=== PATIENT | male | born 1970 | race Two or more races ===

== ENCOUNTER 2019-07-06 07:09 | Emergency (ER) | payer SELFPAY ==
--- NOTE | 2019-07-06 07:21 | NUR ---
PT AMBULATORY TO ED W/ C/O "BUGS CRAWLING IN ME," ABD PAIN AND N/V X 1 WEEK. PT INITIALLY ARGUING W/ RN, DECLINING TO ANSWER QUESTIONS. EXPLAINED POC TO PT INCLUDING NEED TO ASSESS PT AND ADDRESS QUESTIONS. PT APOLOGIZE AND COMPLETED TRIAGE ASSESSMENT W/ RN. PT PLACED ON INTAKE COORDINATOR. ISOLATION PRECAUTIONS IN PLACE.
[2019-07-06 07:28] LABS: BASOPHILS # (AUTO) 0.02 x10^3/uL (0-0.1); BASOPHILS % (AUTO) 0 % (0-1); EOSINOPHILS # (AUTO) 0.34 x10^3/uL (0-0.4); EOSINOPHILS % (AUTO) 4 % (1-7); LYMPHOCYTES # (AUTO) 1.43 x10^3/uL (1-3.4); LYMPHOCYTES % (AUTO) 18 % (22-44); MD NO; MEAN CORPUSCULAR HEMOGLOBIN 30.7 pg (27.5-34.5); MEAN CORPUSCULAR HGB CONC 33.5 g/dL (33.2-36.2); MEAN CORPUSCULAR VOLUME 91.5 fL (81-97); MEAN PLATELET VOLUME 8.4 fL (7.4-10.4); MONOCYTES # (AUTO) 0.67 x10^3/uL (0.2-0.8); MONOCYTES % (AUTO) 8 % (2-9); NEUTROPHILS # (AUTO) 5.66 x10^3/uL (1.8-6.8); NEUTROPHILS % (AUTO) 70 % (42-75); PLATELET COUNT 221 x10^3/uL (130-400); RED BLOOD COUNT 4.54 x10^6/uL (4.38-5.82); RED CELL DISTRIBUTION WIDTH 14.8 % (9.4-14.8)
[2019-07-06] MEDS ORDERED: MAALOX/HYOSCYAMINE/LIDOCAINE 45 ML BTL ONE (07:29)
[2019-07-06] MEDS ORDERED: FAMOTIDINE 20 MG TABLET ONE (07:29)
[2019-07-06] MEDS ORDERED: ONDANSETRON ODT 8 MG ONE (07:30)
[2019-07-06] MEDS ORDERED: ONDANSETRON ODT 8 MG PO ONE (07:30)
[2019-07-06] MEDS ORDERED: MAALOX/HYOSCYAMINE/LIDOCAINE 45 ML BTL PO ONE (07:30)
[2019-07-06] MEDS ORDERED: FAMOTIDINE 20 MG TABLET PO ONE (07:30)
--- NOTE | 2019-07-06 07:38 | NUR ---
PT MEDICATED ORDERED. PROVIDED W/ WARM BLANKET. PT MORE CALM AND COOPERATIVE AT THIS TIME. PT PROVIDED W/ URINAL, AWARE NEED URINE SAMPLE AND STOOL SAMPLE IF ABLE. PT UPDATED ON POC INCLUDING PENDING TESTS AND CHART REVIEW BY ERP.
[2019-07-06 07:40] LABS: ALBUMIN 2.8 g/dL (3.4-5.0); ANION GAP 5 mmol/L (5-15); CHLORIDE 110 mmol/L (98-107)
[2019-07-06 07:43] LABS: ALANINE AMINOTRANSFERASE 17 U/L (12-78); ALKALINE PHOSPHATASE 78 U/L (45-117); BILIRUBIN,TOTAL 0.8 mg/dL (0.2-1.0); CREATININE 1.25 mg/dL (0.7-1.3); TOTAL PROTEIN 7.5 g/dL (6.4-8.2)
[2019-07-06 08:27] VITALS: BP 120/61
--- NOTE | 2019-07-06 08:32 | NUR ---
PT PLACED ON 3L OXYGEN VIA NC FOR SPO2 <90%. PT NOTED TO HAVE 8 SECOND RESPIRATORY PAUSES WHILE SLEEPING. PT EASY TO AROUSE, ABLE TO TAKE A DEEP BREATH AND INCREASE SPO2 TO 93%. PT REPOSITIONED ON GURNEY, HOB ELEVATED. PT CURRENTLY 95% ON 3L OXYGEN WHILE SLEEPING.
--- NOTE | 2019-07-06 08:49 | NUR ---
PT AWAKENED, AWARE WILL BE DISCHARGED. ASKED PT TO PROVIDE URINE SAMPLE. PT STATED "NO." "YOUR DISCRIMINATING ME." WHEN ASKED WHAT PT MEANT, PT STATED "NOTHING." PT ASKED AGAIN IF ABLE TO VOID, PT DECLINED TO ANSWER RN.
--- NOTE | 2019-07-06 09:00 | NUR ---
ERP AT BEDSIDE, UPON FURTHER EXAM, PT FOUND TO HAVE LICE AND BUGS NOTED ON GURNEY.
--- NOTE | 2019-07-06 09:40 | NUR ---
ATTEMPTED TO REVIEW DISCHARGE INSTRUCTIONS AND PRESCRIPTIONS W/ PT. PT BECAME VERBALLY AGRESSIVE, YELLING PROFANITIES AT RN. PT STARTED THROWING CLOTHES AND MONITORING CABLES AROUND ROOM. SECURITY CALLED TO BEDSIDE. PT CONTINUED TO YELL AND THROW THINGS AT DOOR. ATTEMPTED AGAIN TO REVIEW DISCHARGE INSTRUCTIONS AND PRESCRIPTIONS W/ PT W/ SECURITY AT BEDSIDE. PT CONTINUED TO YELL AT RN AND SECURITY. SECURITY ESCORTED PT FROM ED. PT DID NOT TAKE PRESCRIPTIONS OR DISCHARGE PAPERWORK.
== END 2019-07-06 09:43 | disposition home or self-care (01) ==
LOC: ED 09:37
DX: R11.2 Nausea with vomiting, unspecified (principal); R19.7 Diarrhea, unspecified; J18.9 Pneumonia, unspecified organism
CPT/HCPCS: 36415; 74021; 80053; 83690; 85025; 99284; Q0162

== ENCOUNTER 2019-07-14 01:47 | Emergency (ER) | payer SELFPAY ==
[2019-07-14] MEDS ORDERED: PIPERONYL BUTOXIDE/PYRETHRINS SHAMPOO ONE (01:56)
[2019-07-14] MEDS ORDERED: PERMETHRIN CRM 5%, 60GM TP SCH (02:00)
[2019-07-14 02:03] VITALS: BP 99/57
[2019-07-14 03:00] LABS: ALANINE AMINOTRANSFERASE 15 U/L (12-78); ALBUMIN 2.8 g/dL (3.4-5.0); ANION GAP 6 mmol/L (5-15); CALCIUM 8.3 mg/dL (8.5-10.1); CHLORIDE 108 mmol/L (98-107)
[2019-07-14 03:03] LABS: ALKALINE PHOSPHATASE 80 U/L (45-117); TOTAL PROTEIN 7.5 g/dL (6.4-8.2)
[2019-07-14 03:04] LABS: BILIRUBIN,TOTAL < 0.1 mg/dL (0.2-1.0)
--- NOTE | 2019-07-14 04:00 | NUR ---
Pt reports hx of sleep apnea. Oxygen saturation is 96 on RA, but lowers when sleeping.
[2019-07-14 04:02] LABS: MEAN CORPUSCULAR HEMOGLOBIN 30.8 pg (27.5-34.5); MEAN CORPUSCULAR HGB CONC 33.6 g/dL (33.2-36.2); MEAN CORPUSCULAR VOLUME 91.8 fL (81-97); MEAN PLATELET VOLUME 8.1 fL (7.4-10.4); PLATELET COUNT 280 x10^3/uL (130-400); RED CELL DISTRIBUTION WIDTH 14.6 % (9.4-14.8)
[2019-07-14 04:06] LABS: MD YES
[2019-07-14 04:12] LABS: EOS#(MANUAL) 0.82 x10^3/uL (0.0-0.4); EOS% (MANUAL) 8 % (1-7); LYMPH#(MANUAL) 1.85 x10^3/uL (1-3.4); LYMPHS% (MANUAL) 18 % (22-44); MONOS#(MANUAL) 0.72 x10^3/uL (0.3-2.7); MONOS% (MANUAL) 7 % (2-9); SEGS% (MANUAL) 67 % (42-75)
[2019-07-14 04:13] LABS: <PLT MORPHOLOGY> NORMAL PLT MORPH; <RBC MORPHOLOGY> NORMAL
[2019-07-14 04:14] LABS: <PLATELET ESTIMATE> ADEQUATE
[2019-07-14] MEDS ORDERED: ONDANSETRON ODT 8 MG PO STA (04:18)
[2019-07-14] MEDS ORDERED: ONDANSETRON ODT 4 MG ONE (04:25)
[2019-07-14] MEDS ORDERED: ACETAMINOPHEN 500 MG TABLET ONE ×2 (04:25→04:27)
[2019-07-14] MEDS ORDERED: PLEASE ENTER HEIGHT AND WEIGHT MC SCH (04:30)
[2019-07-14] MEDS ORDERED: ACETAMINOPHEN 500 MG TABLET PO ONE (04:30)
[2019-07-14] MEDS ORDERED: AZITHROMYCIN 500 MG TABLET ONE (05:08)
[2019-07-14] MEDS ORDERED: AZITHROMYCIN 500 MG TABLET PO ONE (05:30)
== END 2019-07-14 05:14 | disposition home or self-care (01) ==
LOC: ED 04:35
DX: R10.11 Right upper quadrant pain (principal); R10.31 Right lower quadrant pain; J18.9 Pneumonia, unspecified organism; B85.1 Pediculosis due to Pediculus humanus corporis
CPT/HCPCS: 36415; 71045; 80053; 80307; 83690; 85025; 99284; Q0162

== ENCOUNTER 2019-07-25 21:43 | Emergency (ER) | payer SELFPAY ==
[~2019-07-25] VITALS: Ht 182.9 cm; Wt 100.0 kg
[2019-07-25 21:45] VITALS: BP 116/78
== END 2019-07-25 22:32 | disposition home or self-care (01) ==
LOC: ED 21:50
DX: B85.0 Pediculosis due to Pediculus humanus capitis (principal); E66.9 Obesity, unspecified; Z87.891 Personal history of nicotine dependence
CPT/HCPCS: 99283

== ENCOUNTER 2019-09-15 23:37 | Inpatient (IN) | payer OTHER ==
[~2019-09-15] VITALS: Ht 182.9 cm; Wt 114.3 kg
[2019-09-15] MEDS ORDERED: ACETAMINOPHEN 325 MG TABLET ONE (23:52)
[2019-09-16] MEDS ORDERED: ACETAMINOPHEN 325 MG TABLET PO ONE
[2019-09-16] MEDS ORDERED: SODIUM CHLORIDE 0.9% 1,000ML IVBOLUS ONE
--- NOTE | 2019-09-16 00:08 | NUR ---
PLACED ON VITALS SIGNS AND PROJECT ESTIMATOR, PLACED ON 2L NC. IV STARTED AND 1 SET OF BLOOD CULTURES TAKEN. LAB AT BEDSIDE.
[2019-09-16 00:36] LABS: ALBUMIN 3.1 g/dL (3.4-5.0); ANION GAP 7 mmol/L (5-15); CALCIUM 8.5 mg/dL (8.5-10.1); CHLORIDE 104 mmol/L (98-107)
--- NOTE | 2019-09-16 00:36 | NUR ---
URINE SAMPLE COLLECTED.
[2019-09-16 00:39] LABS: ALANINE AMINOTRANSFERASE 42 U/L (12-78); ALKALINE PHOSPHATASE 79 U/L (45-117); BILIRUBIN,TOTAL 1.3 mg/dL (0.2-1.0); CREATININE 1.37 mg/dL (0.7-1.3)
[2019-09-16 00:47] LABS: MICROSCOPIC INDICATED
[2019-09-16 00:59] LABS: MEAN CORPUSCULAR HEMOGLOBIN 30.7 pg (27.5-34.5); MEAN CORPUSCULAR HGB CONC 33.1 g/dL (33.2-36.2); MEAN CORPUSCULAR VOLUME 92.7 fL (81-97); RED BLOOD COUNT 4.32 x10^6/uL (4.38-5.82); RED CELL DISTRIBUTION WIDTH 13.9 % (9.4-14.8)
[2019-09-16 01:00] LABS: MEAN PLATELET VOLUME 7.9 fL (7.4-10.4); PLATELET COUNT 239 x10^3/uL (130-400)
[2019-09-16] MEDS ORDERED: CEFTRIAXONE PMX 1GM/50ML 50 ML IVPB ONE (01:00)
[2019-09-16] MEDS ORDERED: AZITHROMYCIN 500 MG in SODIUM CHLORIDE 0.9% 250 ML IVPB ONE (01:00)
[2019-09-16] MEDS ORDERED: SODIUM CHLORIDE FLUSH 10ML SYR IVF ONE ×2 (01:00)
[2019-09-16] MEDS ORDERED: CEFTRIAXONE PMX 1GM/50ML 50 ML ONE (01:05)
[2019-09-16 01:41] LABS: MD YES
[2019-09-16 01:46] LABS: <RBC MORPHOLOGY> NORMAL; EOS#(MANUAL) 0.13 x10^3/uL (0.0-0.4); EOS% (MANUAL) 1 % (1-7); LYMPH#(MANUAL) 1.16 x10^3/uL (1-3.4); LYMPHS% (MANUAL) 9 % (22-44); MONOS#(MANUAL) 1.03 x10^3/uL (0.3-2.7); MONOS% (MANUAL) 8 % (2-9); SEG#(MANUAL) 10.58 x10^3/uL (1.8-6.8); SEGS% (MANUAL) 82 % (42-75)
[2019-09-16 01:47] LABS: <PLATELET ESTIMATE> ADEQUATE; <PLT MORPHOLOGY> NORMAL PLT MORPH
--- NOTE | 2019-09-16 02:09 | NUR ---
SLEEPING IN NO ACUTE DISTRESS, EVEN AND UNLABORED RESPIRATIONS. VSS. SAFETY FALL PRECAUTIONS IN PLACE.
--- NOTE | 2019-09-16 02:22 | NUR ---
HOSPITALIST AT BEDSIDE.
--- NOTE | 2019-09-16 02:29 | NUR ---
REPORT GIVEN TO LILLIANA JOYA.
[2019-09-16 03:01] VITALS: BP 93/61
[2019-09-16] MEDS ORDERED: PHARMACY MAY ADJ FOR RENAL FX MC PRN (04:00)
[2019-09-16] MEDS ORDERED: LACTATED RINGERS 1,000 ML IV SCH (04:00)
[2019-09-16] MEDS ORDERED: ACETAMINOPHEN 325 MG TABLET PO PRN (04:00)
[2019-09-16] MEDS ORDERED: ONDANSETRON 2MG/ML, 2ML IVPush PRN (04:00)
[2019-09-16] MEDS ORDERED: HEPARIN 5,000 UNITS/ML, 1ML SQ SCH (04:00)
[2019-09-16] MEDS: DOXYCYCLINE 100 MG in DEXTROSE 5% 250 ML IV SCH ×2 (04:32→16:34)
[2019-09-16 04:43] LABS: AMPHETAMINE SCREEN, URINE Negative (Negative); BARBITURATE SCREEN, URINE Negative (Negative); BENZODIAZEPINE SCREEN, URINE Negative (Negative); CANNABINOID SCREEN, URINE Negative (Negative); COCAINE SCREEN, URINE Negative (Negative); METHADONE SCREEN, URINE Negative (Negative); OPIATE SCREEN, URINE Negative (Negative)
[2019-09-16 05:54] LABS: INTERNATIONAL NORMALIZED RATIO 1.08 (0.93-1.1); PROTHROMBIN TIME 11.5 Seconds (9.6-11.5)
[2019-09-16] MEDS: ASCORBATE SODIUM 3,000 MG in SODIUM CHLORIDE 0.9% 250 ML IVPB SCH ×3 (06:01→21:43)
[2019-09-16 08:10] VITALS: BP 97/58
[2019-09-16] MEDS: ENOXAPARIN 40 MG/0.4 ML SQ SCH (10:16)
[2019-09-16] MEDS: ZINC SULFATE 220 MG CAPSULE PO SCH (10:16)
[2019-09-16] MEDS: CHOLECALCIFEROL 1,000 UNIT TABLET PO SCH (10:16)
[2019-09-16 15:18] VITALS: BP 96/62
[2019-09-16 18:36] VITALS: BP 104/65
[2019-09-16] MEDS: MELATONIN 5 MG TABLET PO SCH (19:59)
[2019-09-17 00:13] VITALS: BP 104/62
[2019-09-17] MEDS: CEFTRIAXONE PMX 1GM/50ML 50 ML IV SCH (00:55)
[2019-09-17] MEDS: ASCORBATE SODIUM 3,000 MG in SODIUM CHLORIDE 0.9% 250 ML IVPB SCH (03:32)
[2019-09-17] MEDS ORDERED: PIPERONYL BUTOXIDE/PYRETHRINS SHAMPOO TP SCH (06:00)
[2019-09-17] MEDS ORDERED: PERMETHRIN CRM 5%, 60GM TP SCH (06:00)
[2019-09-17 06:20] LABS: ALANINE AMINOTRANSFERASE 27 U/L (12-78); ALBUMIN 2.2 g/dL (3.4-5.0); ANION GAP 4 mmol/L (5-15); CHLORIDE 106 mmol/L (98-107); CREATININE 0.82 mg/dL (0.7-1.3)
[2019-09-17 06:22] LABS: ALKALINE PHOSPHATASE 72 U/L (45-117); BILIRUBIN,TOTAL 0.3 mg/dL (0.2-1.0); TOTAL PROTEIN 6.4 g/dL (6.4-8.2)
[2019-09-17] MEDS ORDERED: POTASSIUM CHLORIDE 20 MEQ TAB.ER.PRT PO ONE (06:30)
[2019-09-17 08:28] VITALS: BP 92/53
[2019-09-17] MEDS: CHOLECALCIFEROL 1,000 UNIT TABLET PO SCH (12:39)
[2019-09-17] MEDS: DOXYCYCLINE 100MG TABLET PO SCH ×2 (12:39→21:39)
[2019-09-17] MEDS: ENOXAPARIN 40 MG/0.4 ML SQ SCH (12:41)
[2019-09-17 14:49] LABS: MEAN CORPUSCULAR HEMOGLOBIN 30.8 pg (27.5-34.5); MEAN CORPUSCULAR HGB CONC 33.1 g/dL (33.2-36.2); MEAN CORPUSCULAR VOLUME 93.2 fL (81-97); MEAN PLATELET VOLUME 8.1 fL (7.4-10.4); PLATELET COUNT 202 x10^3/uL (130-400); RED BLOOD COUNT 4.14 x10^6/uL (4.38-5.82); RED CELL DISTRIBUTION WIDTH 13.9 % (9.4-14.8)
[2019-09-17 14:51] LABS: BASOPHILS # (AUTO) 0.02 x10^3/uL (0-0.1); BASOPHILS % (AUTO) 0 % (0-1); EOSINOPHILS # (AUTO) 0.51 x10^3/uL (0-0.4); EOSINOPHILS % (AUTO) 6 % (1-7); LYMPHOCYTES # (AUTO) 1.29 x10^3/uL (1-3.4); LYMPHOCYTES % (AUTO) 15 % (22-44); MD SCAN; MONOCYTES # (AUTO) 0.84 x10^3/uL (0.2-0.8); MONOCYTES % (AUTO) 10 % (2-9); NEUTROPHILS # (AUTO) 6.16 x10^3/uL (1.8-6.8); NEUTROPHILS % (AUTO) 70 % (42-75)
[2019-09-17] MEDS: ASCORBIC ACID 500 MG TABLET PO SCH (17:24)
[2019-09-17] MEDS: ZINC SULFATE 220 MG CAPSULE PO SCH (17:24)
[2019-09-17 20:09] VITALS: BP 98/61
[2019-09-17] MEDS: MELATONIN 5 MG TABLET PO SCH (21:39)
[2019-09-18] MEDS: CEFTRIAXONE PMX 1GM/50ML 50 ML IV SCH (00:52)
[2019-09-18 02:57] VITALS: BP 104/54
[2019-09-18 08:10] VITALS: BP 96/64
[2019-09-18] MEDS: ZINC SULFATE 220 MG CAPSULE PO SCH (08:15)
[2019-09-18] MEDS: ENOXAPARIN 60 MG/0.6 ML SQ SCH (08:15)
[2019-09-18] MEDS: DOXYCYCLINE 100MG TABLET PO SCH ×2 (08:15→20:19)
[2019-09-18] MEDS: CHOLECALCIFEROL 1,000 UNIT TABLET PO SCH (08:15)
[2019-09-18] MEDS: ASCORBIC ACID 500 MG TABLET PO SCH ×2 (08:16→16:32)
[2019-09-18] MEDS: AMOXICILLIN/CLAV 875-125MG TABLET PO SCH ×2 (10:43→20:18)
[2019-09-18] MEDS: POTASSIUM CHLORIDE 20 MEQ TAB.ER.PRT PO SCH (10:43)
[2019-09-18 13:24] VITALS: BP 104/59
[2019-09-18 19:59] VITALS: BP 104/67
[2019-09-18] MEDS: MELATONIN 5 MG TABLET PO SCH (20:19)
[2019-09-19 02:18] VITALS: BP 107/76
[2019-09-19 07:46] VITALS: BP 96/58
[2019-09-19] MEDS: POTASSIUM CHLORIDE 20 MEQ TAB.ER.PRT PO SCH (08:37)
[2019-09-19] MEDS: AMOXICILLIN/CLAV 875-125MG TABLET PO SCH ×2 (08:37→21:02)
[2019-09-19] MEDS: DOXYCYCLINE 100MG TABLET PO SCH ×2 (08:37→21:02)
[2019-09-19] MEDS: ENOXAPARIN 60 MG/0.6 ML SQ SCH (08:37)
[2019-09-19] MEDS: ASCORBIC ACID 500 MG TABLET PO SCH ×2 (08:37→18:29)
[2019-09-19] MEDS: CHOLECALCIFEROL 1,000 UNIT TABLET PO SCH (08:37)
[2019-09-19] MEDS: ZINC SULFATE 220 MG CAPSULE PO SCH (08:37)
[2019-09-19 14:05] VITALS: BP 119/78
[2019-09-19 19:05] VITALS: BP 101/63
[2019-09-19] MEDS: MELATONIN 5 MG TABLET PO SCH (21:02)
[2019-09-20 00:41] VITALS: BP 114/68
[2019-09-20] MEDS: ENOXAPARIN 60 MG/0.6 ML SQ SCH (06:37)
[2019-09-20] MEDS ORDERED: POTASSIUM CHLORIDE 10 MEQ TABLET.ER ONE (08:57)
[2019-09-20 09:04] VITALS: BP 109/77
[2019-09-20] MEDS: POTASSIUM CHLORIDE 20 MEQ TAB.ER.PRT PO SCH (09:07)
[2019-09-20] MEDS: ASCORBIC ACID 500 MG TABLET PO SCH ×2 (09:08→16:33)
[2019-09-20] MEDS: CHOLECALCIFEROL 1,000 UNIT TABLET PO SCH (09:08)
[2019-09-20] MEDS: ZINC SULFATE 220 MG CAPSULE PO SCH (09:08)
[2019-09-20] MEDS: DOXYCYCLINE 100MG TABLET PO SCH ×2 (09:08→20:14)
[2019-09-20] MEDS: AMOXICILLIN/CLAV 875-125MG TABLET PO SCH ×2 (09:09→20:15)
[2019-09-20 14:17] VITALS: BP 132/82
[2019-09-20 19:34] VITALS: BP 111/75
[2019-09-20] MEDS: MELATONIN 5 MG TABLET PO SCH (20:14)
[2019-09-21 03:57] VITALS: BP 90/61
[2019-09-21] MEDS: ENOXAPARIN 60 MG/0.6 ML SQ SCH (05:58)
[2019-09-21 07:26] VITALS: BP 107/71
[2019-09-21] MEDS: DOXYCYCLINE 100MG TABLET PO SCH (07:44)
[2019-09-21] MEDS: AMOXICILLIN/CLAV 875-125MG TABLET PO SCH (07:44)
[2019-09-21] MEDS: POTASSIUM CHLORIDE 20 MEQ TAB.ER.PRT PO SCH (07:44)
[2019-09-21] MEDS: ZINC SULFATE 220 MG CAPSULE PO SCH (07:44)
[2019-09-21] MEDS: ASCORBIC ACID 500 MG TABLET PO SCH (07:44)
[2019-09-21] MEDS: CHOLECALCIFEROL 1,000 UNIT TABLET PO SCH (07:45)
[2019-09-21] MEDS ORDERED: DOXY100T PO (10:31)
[2019-09-21] MEDS ORDERED: AMOX1TAB12 PO (10:31)
[2019-09-21] MEDS ORDERED: POTA20TA6 PO (10:31)
[2019-09-21 13:57] VITALS: BP 94/61
== END 2019-09-21 15:45 | disposition home or self-care (01) | DRG 871 ==
LOC: ED 09-16 00:23 → EDIP 09-16 01:22 → 4NW 09-16 02:39
PROVIDERS: ADMIT Family Medicine; ATTEND Internal Medicine
DX: A41.9 Sepsis, unspecified organism (principal); G93.41 Metabolic encephalopathy; N17.0 Acute kidney failure with tubular necrosis; J18.9 Pneumonia, unspecified organism; J81.1 Chronic pulmonary edema; B85.2 Pediculosis, unspecified; B86 Scabies; E87.6 Hypokalemia; F17.210 Nicotine dependence, cigarettes, uncomplicated; L29.9 Pruritus, unspecified; K82.8 Other specified diseases of gallbladder; E80.6 Other disorders of bilirubin metabolism; R31.29 Other microscopic hematuria; R79.82 Elevated C-reactive protein (CRP); Z20.828 Contact with and (suspected) exposure to other viral communicable diseases; Z59.0 Homelessness
CPT/HCPCS: 36415; 36600; 71045; 76700; 80053; 80307; 81001; 82140; 82803; 83605; 83615; 83735; 83880; 84100; 84145; 84443; 85025; 85379; 85610; 85730; 86140; 87040; 87086; 87635; 93005; 96361; 96365; 96375; 99285; G0378; J0456; J0696; J1644; J1650; J7060; J7030; J7050; J7120; U0001-CS

== ENCOUNTER 2019-10-20 11:16 | Emergency (ER) | payer SELFPAY ==
[~2019-10-20] VITALS: Ht 182.9 cm; Wt 118.0 kg
[~2019-10-20 11:16] MED LIST: AMOX1TAB12 PO; DOXY100T PO; POTA20TA6 PO
[2019-10-20 11:22] VITALS: BP 126/82
== END 2019-10-20 11:55 | disposition home or self-care (01) ==
LOC: ED 11:21
DX: S80.862A Insect bite (nonvenomous), left lower leg, initial encounter (principal); S80.861A Insect bite (nonvenomous), right lower leg, initial encounter; W57.XXXA Bitten or stung by nonvenomous insect and other nonvenomous arthropods, initial encounter; Y93.89 Activity, other specified; Y92.89 Other specified places as the place of occurrence of the external cause; Y99.8 Other external cause status
CPT/HCPCS: 99283

== ENCOUNTER 2019-12-27 18:33 | Emergency (ER) | payer SELFPAY ==
[~2019-12-27] VITALS: Ht 185.4 cm; Wt 92.0 kg
[2019-12-27 18:52] VITALS: BP 120/74
--- NOTE | 2019-12-27 18:59 | NUR ---
REPORT GIVEN TO MAY JOYA. PT RESTING ON [employer] W/ CALL LIGHT IN REACH. RESP EVEN AND UNLABORED, ENRIQUE.
[2019-12-27] MEDS ORDERED: LIDOCAINE 1%, 10ML INFIL ONE (19:30)
[2019-12-27] MEDS ORDERED: DIPH,PERTUSS(ACELL),TET VAC/PF 0.5 ML IM-VACC ONE ×2 (19:30→19:43)
[2019-12-27] MEDS ORDERED: LIDOCAINE-MPF 1%, 5ML ONE (19:43)
[2019-12-27] MEDS ORDERED: LIDOCAINE-MPF 2%, 2ML INFIL ONE (20:00)
--- NOTE | 2019-12-27 20:04 | NUR ---
PT RESTING IN BED, PT HAS NO WANTS OR NEEDS AT THIS TIME, PT ON MONITOR, RN WILL MONITOR VITALS
--- NOTE | 2019-12-27 20:04 | NUR ---
PT HAS LICE PER OFF GOING RN WHO SAID SHE CAUGHT ON IN A CUP
--- NOTE | 2019-12-27 20:50 | NUR ---
PT RESTING IN BED, PT HAS NO WANTS OR NEEDS AT THIS TIME, PT ON MONITOR, RN WILL MONITOR VITALS. PROVIDER IN ROOM WITH SUTURE KIT
[2019-12-27] MEDS ORDERED: NEOSPORIN OINT. PKT 1 PACKET ONE (20:55)
--- NOTE | 2019-12-27 21:10 | NUR ---
PT HAS LICE AND BED BUGS
== END 2019-12-27 21:12 | disposition home or self-care (01) ==
LOC: ED 18:45
DX: S01.112A Laceration without foreign body of left eyelid and periocular area, initial encounter (principal); F17.200 Nicotine dependence, unspecified, uncomplicated; Y04.0XXA Assault by unarmed brawl or fight, initial encounter; Y93.89 Activity, other specified; Y92.89 Other specified places as the place of occurrence of the external cause; Y99.8 Other external cause status
CPT/HCPCS: 12051; 90471; 90715; 99284

== ENCOUNTER 2020-01-14 13:55 | Emergency (ER) | payer OTHER ==
[~2020-01-14] VITALS: Ht 182.9 cm; Wt 97.0 kg
[2020-01-14 14:13] VITALS: BP 120/64
[2020-01-14] MEDS ORDERED: PERMETHRIN CRM 5%, 60GM ONE (14:28)
--- NOTE | 2020-01-14 15:15 | NUR ---
PT PROVIDED ELIMITE CREAM AND OFFERED SHOWER/DECON PRIOR TO LEAVING ED. PT REFUSING DECON HERE, STATES HE WILL SHOWER AND PUT CREAM ON LATER. SET OF CLEAN CLOTHES OBTAINED FROM [employer]ATION CLOSET AND PROVIDED TO PT WITH INSTRUCTIONS ON HOW TO APPLY/USE ELIMITE CREAM.
--- NOTE | 2020-01-14 15:25 | NUR ---
TASK RN: IN TO CHECK ON PT AND STATUS. PT ALREADY OUT OF ROOM. ALL PERSONAL BELONGINGS GONE.
== END 2020-01-14 15:27 | disposition home or self-care (01) ==
LOC: ED 14:18
DX: B85.1 Pediculosis due to Pediculus humanus corporis (principal); B85.0 Pediculosis due to Pediculus humanus capitis; E66.9 Obesity, unspecified; Z68.29 Body mass index [BMI] 29.0-29.9, adult
CPT/HCPCS: 99283

== ENCOUNTER 2020-01-21 20:40 | Emergency (ER) | payer OTHER ==
[~2020-01-21] VITALS: Ht 182.9 cm; Wt 95.0 kg
--- NOTE | 2020-01-21 21:00 | NUR ---
A&o x4, answering questions appropriately. States he lives in [place] [facility] and noticed increased bed bugs and bites x weeks. Decon room by nursing assistants upon arrival. Pt denies pain. Denies SOB. Denies fever/chills. Ambulating independently, steady gait
[2020-01-21] MEDS ORDERED: DIPHENHYDRAMINE 25 MG CAPSULE ONE (21:08)
[2020-01-21] MEDS ORDERED: DIPHENHYDRAMINE 25 MG CAPSULE PO ONE (21:30)
[2020-01-21 21:47] VITALS: BP 142/87
== END 2020-01-21 21:49 | disposition home or self-care (01) ==
LOC: ED 20:50
DX: S80.862A Insect bite (nonvenomous), left lower leg, initial encounter (principal); S80.861A Insect bite (nonvenomous), right lower leg, initial encounter; Z72.9 Problem related to lifestyle, unspecified; Z59.0 Homelessness; W57.XXXA Bitten or stung by nonvenomous insect and other nonvenomous arthropods, initial encounter; Y93.89 Activity, other specified; Y92.89 Other specified places as the place of occurrence of the external cause; Y99.8 Other external cause status
CPT/HCPCS: 99282; 99283

== ENCOUNTER 2020-01-22 20:36 | Emergency (ER) | payer SELFPAY ==
[~2020-01-22] VITALS: Ht 182.9 cm; Wt 96.0 kg
[2020-01-22 20:41] VITALS: BP 154/96
[2020-01-22] MEDS ORDERED: PERMETHRIN CRM 5%, 60GM TP SCH ×2 (21:00)
[2020-01-22] MEDS ORDERED: PERMETHRIN CRM 5%, 60GM ONE (21:28)
[2020-01-22] MEDS ORDERED: PERMETHRIN CRM 5%, 60GM TP ONE ×2 (21:30)
[2020-01-22] MEDS ORDERED: PIPERONYL BUTOXIDE/PYRETHRINS SHAMPOO ONE (21:30)
== END 2020-01-22 23:04 | disposition home or self-care (01) ==
LOC: ED 22:20
DX: B85.0 Pediculosis due to Pediculus humanus capitis (principal); F17.200 Nicotine dependence, unspecified, uncomplicated
CPT/HCPCS: 99283

== ENCOUNTER 2020-02-14 11:33 | Emergency (ER) | payer SELFPAY ==
[~2020-02-14] VITALS: Ht 180.3 cm; Wt 111.0 kg
[2020-02-14 11:36] VITALS: BP 113/84
--- NOTE | 2020-02-14 11:52 | NUR ---
patient arrives for suture removal.
--- NOTE | 2020-02-14 12:07 | NUR ---
discharge reviewed. patient has weather appropriate clothes and gave him a ham sandwich.
== END 2020-02-14 12:13 | disposition home or self-care (01) ==
LOC: ED 12:09
DX: S05.32XD Ocular laceration without prolapse or loss of intraocular tissue, left eye, subsequent encounter (principal); Z48.02 Encounter for removal of sutures; X58.XXXD Exposure to other specified factors, subsequent encounter
CPT/HCPCS: 99281

== ENCOUNTER 2020-03-25 16:34 | Emergency (ER) | payer SELFPAY ==
[~2020-03-25] VITALS: Ht 182.9 cm; Wt 96.0 kg
[2020-03-25 17:13] VITALS: BP 118/64
--- NOTE | 2020-03-25 18:01 | NUR ---
BREAK RN- PT RESTING IN BED, CLOTHES PROVIDED.
--- NOTE | 2020-03-25 19:43 | NUR ---
PT GIVEN DC PAPERWORK AND CLEAN CLOTHES. PT REFUSING TO GET DRESSED AND LEAVE. SECURITY CALL FOR ASSISTANCE IN DC.
--- NOTE | 2020-03-25 20:01 | NUR ---
PT REMOVED ALL BUG INFESTED BELONGINGS FROM FROM SEALED BELONGINGS BAGS AND PUT ON DIRTY CLOTHES. SECURITY ESCORTED PT OUT OF FACILITY.
== END 2020-03-25 20:46 | disposition home or self-care (01) ==
LOC: ED 17:09
DX: B85.1 Pediculosis due to Pediculus humanus corporis (principal)
CPT/HCPCS: 99283

== ENCOUNTER 2020-04-02 17:12 | Emergency (ER) | payer SELFPAY ==
[~2020-04-02] VITALS: Ht 182.9 cm; Wt 103.6 kg
[2020-04-02 17:15] VITALS: BP 116/68
== END 2020-04-02 19:24 | disposition home or self-care (01) ==
LOC: ED 19:00
DX: B86 Scabies (principal); R23.4 Changes in skin texture; R21 Rash and other nonspecific skin eruption
CPT/HCPCS: 99283